=== PATIENT | male | born 1985 | race Two or more races ===

== ENCOUNTER → 2016-09-16 | Outpatient (CLI) | payer OTHER ==
[2016-09-16 10:49] LABS: BASOPHIL % 0.4 % (0-2); PLATELET COUNT 165 x10^3mcL (130-400); RED CELL DISTRIBUTION WIDTH 13.2 % (11.5-14.5)
[2016-09-16 10:59] LABS: IRON 68 ug/dL (65-170); TOTAL IRON BINDING CAPACITY 356 ug/dL (250-450)
[2016-09-16 11:11] LABS: FREE T4 0.96 ng/dL (0.76-1.46); FREE THYROXINE INDEX 2.6 ug/dL (1.4-4.5); T4(THYROXINE) 8.4 ug/dL (4.7-13.3)
[2016-09-16 11:14] LABS: T3 TOTAL 1.17 ng/mL
[2016-09-16 11:22] LABS: ALBUMIN 4.4 g/dL (3.4-5.0); CARBON DIOXIDE 29.7 mmol/L (21-32); CHLORIDE SERUM 94 mmol/L (98-107); CREATININE SERUM 0.9 mg/dL (0.7-1.3); GFR1 > 60 mL/min; GLUCOSE SERUM 87 mg/dL (74-106); TOTAL PROTEIN, SERUM 8.3 g/dL (6.4-8.2)
[2016-09-16 11:23] LABS: BILIRUBIN DIRECT 0.14 mg/dL (0.0-0.2); BILIRUBIN TOTAL 0.59 mg/dL (0.20-1.00)
[2016-09-16 11:24] LABS: ALKALINE PHOSPHATASE 90 U/L (46-116); ALT/SGPT 48 U/L (16-63); AST/SGOT 28 U/L (15-37); CHOLESTEROL 161 mg/dL (<200); CHOLESTEROL/HDL RATIO 3.6; HDL CHOLESTEROL 45 mg/dL (40-60); MAGNESIUM 2.3 mg/dL (1.8-2.4); TRIGLYCERIDES 126 mg/dL (<150)
[2016-09-16 11:34] LABS: RED BLOOD CELLS 6.43 M/mm3 (4.52-5.90)
[2016-09-16 11:41] LABS: SODIUM SERUM 135 mmol/L (136-145)
== END | disposition home or self-care (01) ==
LOC: LB 09:52
PROVIDERS: Internal Medicine
DX: Z00.00 Encounter for general adult medical examination without abnormal findings (principal)
CPT/HCPCS: 84439

== ENCOUNTER → 2017-06-06 | Outpatient (CLI) | payer OTHER ==
[2017-06-06 13:38] LABS: BASOPHIL % 0.5 % (0-2); PLATELET COUNT 166 x10^3mcL (130-400); RED CELL DISTRIBUTION WIDTH 13.3 % (11.5-14.5)
[2017-06-06 14:09] LABS: ALBUMIN 3.9 g/dL (3.4-5.0); ALKALINE PHOSPHATASE 84 U/L (46-116); ALT/SGPT 65 U/L (16-63); AST/SGOT 32 U/L (15-37); BILIRUBIN DIRECT 0.14 mg/dL (0.0-0.2); BILIRUBIN TOTAL 0.47 mg/dL (0.20-1.00); CALCIUM 9.1 mg/dL (8.5-10.1); CARBON DIOXIDE 28.4 mmol/L (21-32); CHLORIDE SERUM 102 mmol/L (98-107); CHOLESTEROL 156 mg/dL (<200); CHOLESTEROL/HDL RATIO 4.5; CREATININE SERUM 0.9 mg/dL (0.7-1.3); FREE T4 0.88 ng/dL (0.76-1.46); GFR1 > 60 mL/min; GLUCOSE SERUM 77 mg/dL (74-106); HDL CHOLESTEROL 35 mg/dL (40-60); POTASSIUM SERUM 4.9 mmol/L (3.5-5.1); SODIUM SERUM 145 mmol/L (136-145); TOTAL PROTEIN, SERUM 7.5 g/dL (6.4-8.2); TRIGLYCERIDES 143 mg/dL (<150)
== END | disposition home or self-care (01) ==
LOC: LB 10:01
PROVIDERS: Internal Medicine
DX: Z00.00 Encounter for general adult medical examination without abnormal findings (principal)
CPT/HCPCS: 84439

== ENCOUNTER → 2017-06-16 | Outpatient (CLI) | payer OTHER | END | disposition home or self-care (01) | LOC: US 08:46 | PROC: BW40ZZZ Ultrasonography of Abdomen (ICD-10-PCS; principal; 2017-06-16) | DX: R74.0 Nonspecific elevation of levels of transaminase and lactic acid dehydrogenase [LDH] (principal) ==

== ENCOUNTER 2017-09-03 10:56 | Emergency (ER) | payer OTHER ==
[~2017-09-03] VITALS: Ht 170.2 cm; Wt 77.6 kg
[2017-09-03 11:00] VITALS: BP 140/91; Ht 170.2 cm; Wt 77.6 kg
== END 2017-09-03 11:51 | disposition home or self-care (01) ==
LOC: ED 10:56
DX: J06.9 Acute upper respiratory infection, unspecified (principal)

== ENCOUNTER → 2018-04-28 | Outpatient (CLI) | payer OTHER ==
[2018-04-28 10:15] LABS: BASOPHIL % 0.5 % (0-2); PLATELET COUNT 189 x10^3mcL (130-400); RED CELL DISTRIBUTION WIDTH 13.1 % (11.5-14.5)
[2018-04-28 10:59] LABS: ALKALINE PHOSPHATASE 114 U/L (46-116); ALT/SGPT 62 U/L (16-63); AST/SGOT 35 U/L (15-37); BILIRUBIN DIRECT 0.12 mg/dL (0.0-0.2); BILIRUBIN TOTAL 0.51 mg/dL (0.20-1.00); CALCIUM 9.1 mg/dL (8.5-10.1); CARBON DIOXIDE 32.2 mmol/L (21-32); CHLORIDE SERUM 105 mmol/L (98-107); CHOLESTEROL 155 mg/dL (<200); CREATININE SERUM 1.1 mg/dL (0.7-1.3); FREE T4 1.02 ng/dL (0.76-1.46); GFR1 > 60 mL/min; GLUCOSE SERUM 95 mg/dL (74-106); POTASSIUM SERUM 4.5 mmol/L (3.5-5.1); SODIUM SERUM 143 mmol/L (136-145); TOTAL PROTEIN, SERUM 7.8 g/dL (6.4-8.2); TRIGLYCERIDES 146 mg/dL (<150)
[2018-04-28 11:00] LABS: CHOLESTEROL/HDL RATIO 4.8; HDL CHOLESTEROL 32 mg/dL (40-60)
== END | disposition home or self-care (01) ==
LOC: RD 09:03
PROVIDERS: Internal Medicine
DX: Z00.00 Encounter for general adult medical examination without abnormal findings (principal)
CPT/HCPCS: 84439; 86431

== ENCOUNTER → 2018-09-07 | Outpatient (CLI) | payer OTHER ==
[2018-09-07 09:36] LABS: ALBUMIN 4.1 g/dL (3.4-5.0); ALKALINE PHOSPHATASE 121 U/L (46-116); ALT/SGPT 95 U/L (16-63); AST/SGOT 35 U/L (15-37); BILIRUBIN TOTAL 0.9 mg/dL (0.20-1.00); CALCIUM 9.7 mg/dL (8.5-10.1); CARBON DIOXIDE 31.7 mmol/L (21-32); CHLORIDE SERUM 108 mmol/L (98-107); CHOLESTEROL 153 mg/dL (<200); CREATININE SERUM 1.1 mg/dL (0.7-1.3); FREE T4 1.53 ng/dL (0.76-1.46); GFR1 > 60 mL/min; GLUCOSE SERUM 96 mg/dL (74-106); POTASSIUM SERUM 5.3 mmol/L (3.5-5.1); SODIUM SERUM 144 mmol/L (136-145); TOTAL PROTEIN, SERUM 7.8 g/dL (6.4-8.2); TRIGLYCERIDES 140 mg/dL (<150)
[2018-09-07 09:46] LABS: CHOLESTEROL/HDL RATIO 4.5; HDL CHOLESTEROL 34 mg/dL (40-60)
== END | disposition home or self-care (01) ==
LOC: LB 08:26
PROVIDERS: Internal Medicine
DX: Z00.00 Encounter for general adult medical examination without abnormal findings (principal); E03.5 Myxedema coma
CPT/HCPCS: 84439

== ENCOUNTER → 2018-10-22 | Outpatient (CLI) | payer OTHER ==
[2018-10-22 10:37] LABS: FREE T4 1.25 ng/dL (0.76-1.46)
== END | disposition home or self-care (01) ==
LOC: LB 09:22
PROVIDERS: Internal Medicine
DX: E07.9 Disorder of thyroid, unspecified (principal)
CPT/HCPCS: 84439; 86376

== ENCOUNTER → 2019-01-29 | Outpatient (CLI) | payer OTHER ==
[2019-01-29 09:54] LABS: microscopic required? NO
[2019-01-29 10:33] LABS: BASOPHIL % 0.5 % (0-2); PLATELET COUNT 172 x10^3mcL (130-400); RED CELL DISTRIBUTION WIDTH 13.3 % (11.5-14.5)
[2019-01-29 10:38] LABS: urine erythrocyte NEGATIVE (NEGATIVE)
[2019-01-29 10:40] LABS: ALBUMIN 3.9 g/dL (3.4-5.0); ALKALINE PHOSPHATASE 97 U/L (46-116); ALT/SGPT 52 U/L (16-63); AST/SGOT 26 U/L (15-37); BILIRUBIN TOTAL 0.5 mg/dL (0.20-1.00); CALCIUM 8.7 mg/dL (8.5-10.1); CARBON DIOXIDE 30.2 mmol/L (21-32); CHLORIDE SERUM 105 mmol/L (98-107); CHOLESTEROL 174 mg/dL (<200); CHOLESTEROL/HDL RATIO 4.8; FREE T4 0.78 ng/dL (0.76-1.46); GFR1 > 60 mL/min; GLUCOSE SERUM 87 mg/dL (74-106); HDL CHOLESTEROL 36 mg/dL (40-60); POTASSIUM SERUM 4.5 mmol/L (3.5-5.1); SODIUM SERUM 142 mmol/L (136-145); TOTAL PROTEIN, SERUM 7.5 g/dL (6.4-8.2); TRIGLYCERIDES 190 mg/dL (<150)
[2019-01-31 09:08] LABS: RAPID PLASMA REAGIN Non Reactive (Non Reactive)
== END | disposition home or self-care (01) ==
LOC: LB 08:48
DX: Z00.01 Encounter for general adult medical examination with abnormal findings (principal); E03.9 Hypothyroidism, unspecified; E66.3 Overweight; Z11.3 Encounter for screening for infections with a predominantly sexual mode of transmission
CPT/HCPCS: 84439; 86376; 87491; 87591

== ENCOUNTER → 2019-02-06 | Outpatient (CLI) | payer OTHER | END | disposition home or self-care (01) | LOC: US 08:42 | PROC: BW40ZZZ Ultrasonography of Abdomen (ICD-10-PCS; principal; 2019-02-06) | DX: B19.10 Unspecified viral hepatitis B without hepatic coma (principal) ==

== ENCOUNTER → 2019-03-21 | Outpatient (CLI) | payer OTHER ==
[2019-03-21 11:03] LABS: FREE T4 0.91 ng/dL (0.76-1.46)
== END | disposition home or self-care (01) ==
LOC: LB 09:47
DX: E03.9 Hypothyroidism, unspecified (principal)
CPT/HCPCS: 84439

== ENCOUNTER → 2019-05-11 | Outpatient (CLI) | payer OTHER ==
[2019-05-11 09:27] LABS: FREE T4 1.13 ng/dL (0.76-1.46)
== END | disposition home or self-care (01) ==
LOC: LB 08:00
DX: E03.9 Hypothyroidism, unspecified (principal)
CPT/HCPCS: 84439

== ENCOUNTER → 2019-08-01 | Outpatient (CLI) | payer OTHER ==
[2019-08-01 10:21] LABS: ALKALINE PHOSPHATASE 104 U/L (46-116); ALT/SGPT 99 U/L (16-63); AST/SGOT 44 U/L (15-37); BILIRUBIN DIRECT 0.13 mg/dL (0.0-0.2); BILIRUBIN TOTAL 0.5 mg/dL (0.20-1.00); TOTAL PROTEIN, SERUM 7.4 g/dL (6.4-8.2)
== END | disposition home or self-care (01) ==
LOC: LB 08:29
PROVIDERS: Internal Medicine Gastroenterology
DX: B19.10 Unspecified viral hepatitis B without hepatic coma (principal); E03.9 Hypothyroidism, unspecified
CPT/HCPCS: 84439

== ENCOUNTER → 2019-11-09 | Outpatient (CLI) | payer OTHER ==
[2019-11-09 11:35] LABS: BILIRUBIN DIRECT 0.07 mg/dL (0.0-0.2); BILIRUBIN TOTAL 0.35 mg/dL (0.20-1.00); TOTAL PROTEIN, SERUM 7.5 g/dL (6.4-8.2)
[2019-11-09 12:12] LABS: T4(THYROXINE) 9.6 ug/dL (4.7-13.3)
== END | disposition home or self-care (01) ==
LOC: LB 09:38
DX: E03.9 Hypothyroidism, unspecified (principal)

== ENCOUNTER → 2019-12-22 | Outpatient (CLI) | payer OTHER ==
[2019-12-22 11:11] LABS: ALBUMIN 4.3 g/dL (3.4-5.0); ALKALINE PHOSPHATASE 116 U/L (46-116); ALT/SGPT 55 U/L (16-63); AST/SGOT 29 U/L (15-37); BILIRUBIN DIRECT 0.13 mg/dL (0.0-0.2)
== END | disposition home or self-care (01) ==
LOC: LB 09:54
PROVIDERS: ATTEND Internal Medicine Gastroenterology
DX: B18.1 Chronic viral hepatitis B without delta-agent (principal)
CPT/HCPCS: 82172

== ENCOUNTER → 2020-01-25 | Outpatient (CLI) | payer OTHER ==
[2020-01-25 09:29] LABS: microscopic required? NO
[2020-01-25 09:42] LABS: BASOPHIL % 0.7 % (0-2); PLATELET COUNT 170 x10^3mcL (130-400); RED CELL DISTRIBUTION WIDTH 13.3 % (11.5-14.5)
[2020-01-25 09:46] LABS: UA SPECIFIC GRAVITY 1.025 (1.005-1.035); urine erythrocyte NEGATIVE (NEGATIVE)
[2020-01-25 10:32] LABS: ALBUMIN 4.2 g/dL (3.4-5.0); ALKALINE PHOSPHATASE 118 U/L (46-116); ALT/SGPT 64 U/L (16-63); AST/SGOT 30 U/L (15-37); BILIRUBIN TOTAL 0.5 mg/dL (0.20-1.00); CALCIUM 9.1 mg/dL (8.5-10.1); CARBON DIOXIDE 32.4 mmol/L (21-32); CHLORIDE SERUM 106 mmol/L (98-107); CHOLESTEROL 189 mg/dL (<200); CHOLESTEROL/HDL RATIO 4.8; FREE T4 1.04 ng/dL (0.76-1.46); GFR1 > 60 mL/min; GLUCOSE SERUM 88 mg/dL (74-106); HDL CHOLESTEROL 39 mg/dL (40-60); SODIUM SERUM 141 mmol/L (136-145); TOTAL PROTEIN, SERUM 7.2 g/dL (6.4-8.2); TRIGLYCERIDES 122 mg/dL (<150)
== END | disposition home or self-care (01) ==
LOC: LB 08:33
DX: Z00.01 Encounter for general adult medical examination with abnormal findings (principal); E03.9 Hypothyroidism, unspecified
CPT/HCPCS: 84439